=== PATIENT | female | born 1985 | race African-American/Black ===

== ENCOUNTER 2017-07-21 18:15 | Emergency (ER) | payer MEDICAID ==
[~2017-07-21] VITALS: Ht 165.1 cm; Wt 72.6 kg
[2017-07-21 19:40] VITALS: BP 126/80
[2017-07-21] MEDS ORDERED: NEOMYCIN-BACITRACIN-POLYM 15GM TOP OINT TOP ONE (19:51)
[2017-07-21] MEDS ORDERED: NEOMYCIN-BACITRACIN-POLYM UNITDOSE PKG TOP OINT TOP ONE (20:00)
[2017-07-21] MEDS ORDERED: ACETAMINOPHEN/CODEINE#3 (300/30mg) TAB PO ONE (20:00)
[2017-07-21] MEDS ORDERED: TETANUS-DIPTH-ACEL PERTUSSIS 0.5ML SYRG IM ONE (20:00)
== END 2017-07-21 20:30 | disposition home or self-care (01) ==
LOC: ER 18:15
DX: T25.121A Burn of first degree of right foot, initial encounter (principal); T24.132A Burn of first degree of left lower leg, initial encounter; X19.XXXA Contact with other heat and hot substances, initial encounter; Y93.89 Activity, other specified; Y92.89 Other specified places as the place of occurrence of the external cause; Y99.8 Other external cause status
CPT/HCPCS: 16020; 90471; 90715

== ENCOUNTER 2018-07-19 02:36 | Emergency (ER) | payer MEDICAID ==
[~2018-07-19] VITALS: Ht 152.4 cm; Wt 74.8 kg
[2018-07-19 02:55] VITALS: BP 119/83
== END 2018-07-19 03:35 | disposition left against medical advice (07) ==
LOC: ER 02:36
DX: M25.571 Pain in right ankle and joints of right foot (principal); Z53.21 Procedure and treatment not carried out due to patient leaving prior to being seen by health care provider

== ENCOUNTER 2019-12-27 15:45 | Emergency (ER) | payer MEDICAID ==
[~2019-12-27] VITALS: Ht 165.1 cm; Wt 72.6 kg
[2019-12-27 15:52] VITALS: BP 143/93
== END 2019-12-27 17:12 | disposition home or self-care (01) ==
LOC: ER 15:45
DX: M72.2 Plantar fascial fibromatosis (principal)
CPT/HCPCS: 73610

== ENCOUNTER 2020-03-20 21:56 | Emergency (ER) | payer MEDICAID ==
[~2020-03-20] VITALS: Ht 165.1 cm; Wt 77.1 kg
[2020-03-20 22:18] VITALS: BP 138/83
== END 2020-03-20 22:50 | disposition left against medical advice (07) ==
LOC: ER 21:57
DX: M79.89 Other specified soft tissue disorders (principal); Z53.21 Procedure and treatment not carried out due to patient leaving prior to being seen by health care provider

== ENCOUNTER 2020-11-11 23:49 | Emergency (ER) | payer MEDICAID ==
[~2020-11-11] VITALS: Ht 165.1 cm; Wt 72.6 kg
[2020-11-12] MEDS ORDERED: ACETAMINOPHEN/CODEINE#3 (300/30mg) TAB PO ONE (03:00)
[2020-11-12 03:24] VITALS: BP 155/99
== END 2020-11-12 04:02 | disposition home or self-care (01) ==
LOC: ER 23:52
DX: S62.615A Displaced fracture of proximal phalanx of left ring finger, initial encounter for closed fracture (principal); Y08.89XA Assault by other specified means, initial encounter; Y93.89 Activity, other specified; Y92.89 Other specified places as the place of occurrence of the external cause; Y99.8 Other external cause status
CPT/HCPCS: 73130